=== PATIENT | female | born 2000 | race Caucasian/White ===

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

== ENCOUNTER → 2020-02-23 | Outpatient (REF) | payer OTHER | LOC: M LAB REF 14:19 | PROVIDERS: ATTEND Nurse Practitioner Family | DX: R30.0 Dysuria (principal) ==

== ENCOUNTER → 2020-11-07 | Outpatient (REF) | payer OTHER | LOC: M WUC 15:59 | PROVIDERS: ATTEND Physician Assistant | DX: N39.0 Urinary tract infection, site not specified (principal) ==

== ENCOUNTER → 2021-11-12 | Outpatient (REF) | payer OTHER | LOC: M WUC 09:54 | PROVIDERS: ATTEND Physician Assistant | DX: J02.9 Acute pharyngitis, unspecified (principal) ==

== ENCOUNTER → 2025-03-04 | Outpatient (CLI) | payer OTHER ==
[2025-03-04 17:43] LABS: PLATELET COUNT, AUTOMATED 248 10^3/uL (150-450)
[2025-03-04 18:43] LABS: HIV 1&2 SCREEN NEGATIVE (NEGATIVE)
[2025-03-04 18:51] LABS: HEPATITIS C VIRUS ABY INDEX < 0.02 INDEX (<0.8)
[2025-03-04 22:28] LABS: Trichomonas vaginalis (AMP) NOT DETECTED (NEGATIVE)
[2025-03-04 22:51] LABS: GC DNA AMPLIFICATION NEGATIVE (NEGATIVE)
== END ==
LOC: M PLALAB 15:54
PROVIDERS: ATTEND Advanced Practice Midwife
DX: Z34.01 Encounter for supervision of normal first pregnancy, first trimester (principal)

== ENCOUNTER → 2025-03-26 | Outpatient (REF) | payer OTHER | LOC: M SFHCWAGY 15:06 | PROVIDERS: ATTEND Nurse Practitioner Family | DX: R82.90 Unspecified abnormal findings in urine (principal) ==

== ENCOUNTER → 2025-04-26 | Outpatient (REF) | payer OTHER | LOC: M PLALAB 15:58 | PROVIDERS: ATTEND Student in an Organized Health Care Education/Training Program | DX: Z31.430 Encounter of female for testing for genetic disease carrier status for procreative management (principal); Z53.9 Procedure and treatment not carried out, unspecified reason ==

== ENCOUNTER → 2025-05-04 | Outpatient (CLI) | payer OTHER | LOC: M WHC 15:33 | PROVIDERS: ATTEND Nurse Practitioner Family | DX: Z34.82 Encounter for supervision of other normal pregnancy, second trimester (principal); Z3A.19 19 weeks gestation of pregnancy ==